=== PATIENT | female | born 1975 | race Caucasian/White ===

== ENCOUNTER 2018-09-15 12:58 | Emergency (ER) | payer BC ==
[~2018-09-15] VITALS: Ht 160 cm; Wt 91.6 kg
[2018-09-15 13:05] VITALS: BP 136/79
--- NOTE | 2018-09-15 13:09 | NUR ---
CUP HANDED TO PT FOR URINE SAMPLE
--- NOTE | 2018-09-15 13:35 | NUR ---
PT C/O SORE THROAT SINCE LAST SUNDAY, GETTING WORSE SINCE LAST NIGHT. STATES TO HAVE MORE DIFFICULTY IN SWALLOWING. HAS MILD REDNESS AT BOTH EYES. DENUIES ANY FEVER, NAUSEA OR VOMITING AT THIS TIME. NO PMH. NKA. BREATHING NORMAL, RESTING ON BED , 100% O2 SAT AT RA. ER MD TO SEE THE PT.
[2018-09-15] MEDS ORDERED: IBUPROFEN 800 MG TAB PO ONE (15:15)
[2018-09-15] MEDS ORDERED: ACETAMINOPHEN EXTRA STRENGTH 500 MG TAB PO ONE (15:15)
[2018-09-15] MEDS ORDERED: DEXAMETHASONE 10 MG/ML VIAL IM ONE (15:15)
[2018-09-15] MEDS ORDERED: LEVOFLOXACIN 750 MG TAB PO ONE (15:15)
--- NOTE | 2018-09-15 15:40 | NUR ---
PT LYING COMFORTABLY IN HER BED.
[2018-09-15 16:12] VITALS: BP 132/78
--- NOTE | 2018-09-15 16:14 | NUR ---
Patient discharged with v/s stable. Written and verbal after care instructions given and explained. Patient alert, oriented and verbalized understanding of instructions. Ambulatory with steady gait. All questions addressed prior to discharge. ID band removed. Patient advised to follow up with PMD. Rx of TESSALON PERLES, LEVOFLOXACIN, POLYTRIM OPTHALMIC SOLUTUION, ALBUTEROL, IBUPROFEN given. Patient educated on indication of medication including possible reaction and side effects. Opportunity to ask questions provided and answered.
== END 2018-09-15 16:14 | disposition home or self-care (01) ==
LOC: MED 12:58
DX: J06.9 Acute upper respiratory infection, unspecified (principal); N39.0 Urinary tract infection, site not specified; J01.90 Acute sinusitis, unspecified; H10.33 Unspecified acute conjunctivitis, bilateral; Z98.890 Other specified postprocedural states
CPT/HCPCS: 81002; 81025; 96372; 99284; J1100

== ENCOUNTER 2018-11-27 20:48 | Emergency (ER) | payer OTHER, BC ==
[~2018-11-27] VITALS: Ht 157.5 cm; Wt 93.9 kg
[2018-11-27 20:54] VITALS: BP 128/70
--- NOTE | 2018-11-27 20:59 | NUR ---
PT AMBULTAED TO LOBBY WITH VSS.
--- NOTE | 2018-11-27 21:11 | NUR ---
PATIENT PRESENTS TO ED WITH C/O RIGHT ELBOW PAIN S/P SLIP AND FALL LANDING ON R ELBOW AT 2000 TONIGHT. PATIENT DENIES ANY LOSS OF SENSATION, +ROM, +CMS, NO OBVIOUS DEFORMITY, NO LOC, +BRUISING AND TENDERNESS . PT DENIES N/V/D; SKIN IS PINK/WARM/DRY; AAOX4 WITH EVEN AND STEADY GAIT; LUNGS CLEAR BL; HR EVEN AND REGULAR; PT DENIES ANY FEVER, CP, SOB, OR COUGH AT THIS TIME; PATIENT STATES PAIN OF 9/10 AT THIS TIME; VSS; PATIENT POSITIONED FOR COMFORT; HOB ELEVATED; BEDRAILS UP X2; BED DOWN. ER MD MADE AWARE OF PT STATUS.
--- NOTE | 2018-11-27 21:16 | NUR ---
MICHA GUAMAN EVAL PATIENT
[2018-11-27] MEDS ORDERED: KETOROLAC 30 MG/ML VIAL IM ONE (21:20)
[2018-11-27 21:59] VITALS: BP 120/86
== END 2018-11-27 21:59 | disposition home or self-care (01) ==
LOC: MED 20:48
DX: S50.01XA Contusion of right elbow, initial encounter (principal); S80.01XA Contusion of right knee, initial encounter; S40.011A Contusion of right shoulder, initial encounter; W01.0XXA Fall on same level from slipping, tripping and stumbling without subsequent striking against object, initial encounter; Y93.89 Activity, other specified; Y92.89 Other specified places as the place of occurrence of the external cause; Y99.8 Other external cause status
CPT/HCPCS: 73080; 96372; 99283; J1885

== ENCOUNTER 2018-12-26 13:06 | Emergency (ER) | payer OTHER, BC ==
[~2018-12-26] VITALS: Ht 157.5 cm; Wt 97.3 kg
[2018-12-26 13:11] VITALS: BP 138/77
[2018-12-26] MEDS ORDERED: DEXAMETHASONE 10 MG/ML VIAL IM ONE (14:15)
[2018-12-26 14:41] VITALS: BP 128/60
== END 2018-12-26 14:41 | disposition home or self-care (01) ==
LOC: MED 13:06
DX: L50.9 Urticaria, unspecified (principal)
CPT/HCPCS: 96372; 99283; J1100